=== PATIENT | female | born 1990 | race Caucasian/White ===

== ENCOUNTER 2021-01-02 02:25 | Emergency (ER) | payer SELFPAY | END 2021-01-02 04:17 | disposition home or self-care (01) | LOC: ERS 02:25 | DX: R63.5 Abnormal weight gain (principal); D68.0 Von Willebrand disease; E03.9 Hypothyroidism, unspecified | CPT/HCPCS: 99283 ==

== ENCOUNTER 2024-02-18 01:01 | Emergency (ER) | payer SELFPAY | END 2024-02-18 03:32 | disposition home or self-care (01) | LOC: ERS 01:01 | DX: S21.232A Puncture wound without foreign body of left back wall of thorax without penetration into thoracic cavity, initial encounter (principal); Z20.3 Contact with and (suspected) exposure to rabies; F17.210 Nicotine dependence, cigarettes, uncomplicated; W55.81XA Bitten by other mammals, initial encounter | CPT/HCPCS: 90375; 90471; 90472; 90675; 90715; 96372 ==

== ENCOUNTER → 2024-02-21 | Day surgery (SDC) | payer SELFPAY ==
[~2024-02-21] MED LIST: Rabies Vaccine Human 2.5 UNITS VIAL ONE
== END ==
LOC: ER/OP 04:44
DX: Z23 Encounter for immunization (principal)
CPT/HCPCS: 90471; 90675

== ENCOUNTER → 2024-02-25 | Day surgery (SDC) | payer SELFPAY | LOC: ER/OP 03:28 → EDSTATUS 03:52 | DX: Z23 Encounter for immunization (principal) | CPT/HCPCS: 90471; 90675 ==